=== PATIENT | male | born 1975 | race African-American/Black ===

== ENCOUNTER 2024-08-18 10:59 | Day surgery (SDC) | payer MEDICAID ==
[~2024-08-18] VITALS: Ht 188 cm; Wt 112.3 kg
[2024-08-18 11:29] VITALS: BP 176/98; PULSE 65; RESP 12; TEMP 98.7
[2024-08-18] MEDS ORDERED: fentaNYL/PF 50MCG/1 ML 2ML syringe ONE (11:30)
[2024-08-18] MEDS ORDERED: midazolam 1 mg/ML 2ml injection ONE (11:31)
[2024-08-18] MEDS ORDERED: propofol inj 20 ML IV ONE (11:32)
[2024-08-18 11:56] VITALS: BP 124/67; PULSE 71; RESP 13; O2SAT 97
[2024-08-18 12:00] VITALS: BP 127/121; PULSE 67; RESP 15; O2SAT 96
[2024-08-18 12:10] VITALS: BP 131/84; PULSE 57; RESP 13; O2SAT 96
[2024-08-18 12:20] VITALS: BP 131/87; PULSE 55; RESP 13; O2SAT 97
[2024-08-18 12:30] VITALS: BP 141/89; PULSE 56; RESP 14; O2SAT 98
== END 2024-08-18 12:45 | disposition home or self-care (01) ==
LOC: GI LAB 10:59
PROVIDERS: ATTEND Internal Medicine Gastroenterology
DX: K22.70 Barrett's esophagus without dysplasia (principal); K31.89 Other diseases of stomach and duodenum; K30 Functional dyspepsia; Z87.11 Personal history of peptic ulcer disease
CPT/HCPCS: 43239; J2250; J2704; J3010; J7030; Z7512; A4620

== ENCOUNTER 2024-11-28 07:05 | Day surgery (SDC) | payer MEDICAID ==
[~2024-11-28] VITALS: Ht 189.2 cm; Wt 112.3 kg
[2024-11-28] VITALS (7 sets, daily range): BP systolic 110–138; BP diastolic 65–95; PULSE 56–76; RESP 12–21; TEMP 98.5; O2SAT 98–100
[~2024-11-28 07:05] MED LIST: HYDR-3686 PO
[2024-11-28] MEDS ORDERED: fentaNYL/PF 50MCG/1 ML 2ML syringe ONE (08:18)
[2024-11-28] MEDS ORDERED: midazolam 1 mg/ML 2ml injection ONE (08:18)
[2024-11-28] MEDS ORDERED: propofol inj 20 ML IV ONE ×2 (08:22→08:47)
== END 2024-11-28 09:35 | disposition home or self-care (01) ==
LOC: GI LAB 07:05
PROVIDERS: ATTEND Internal Medicine Gastroenterology
DX: Z12.11 Encounter for screening for malignant neoplasm of colon (principal); K64.8 Other hemorrhoids; K63.5 Polyp of colon; K57.30 Diverticulosis of large intestine without perforation or abscess without bleeding; Z79.899 Other long term (current) drug therapy
CPT/HCPCS: 45380; J2250; J2704; J3010; J7030; J7040; Z7512; A4620